=== PATIENT | female | born 1980 | race Two or more races ===

== ENCOUNTER → 2019-02-22 | Outpatient (CLI) | payer OTHER ==
[2019-02-22 16:02] LABS: BASO % 1 % (0-3); EOS % 1 % (0-3); HEMATOCRIT 39.8 % (36.0-47.0); HEMOGLOBIN 13.4 g/dL (12.0-15.5); LYMPH # 1.5 x10^3/uL (1.0-4.8); LYMPH % 34 % (24-48); MEAN CORPUSCULAR HEMOGLOBIN 29 pg (25-35); MEAN CORPUSCULAR HGB CONC 34 g/dL (31-37); MEAN CORPUSCULAR VOLUME 87 fL (79-100); MONO # 0.4 x10^3/uL (0.0-1.1); MONO % 9 % (0-9); NEUT # 2.5 x10^3uL (1.8-7.7); NEUT % 56 % (31-73); PLATELET COUNT 229 x10^3/uL (140-400); RED BLOOD COUNT 4.58 x10^6/uL (3.50-5.40); RED CELL DISTRIBUTION WIDTH 13.8 % (11.5-14.5); WHITE BLOOD COUNT 4.5 x10^3/uL (4.0-11.0)
[2019-02-22 16:13] LABS: ALBUMIN 4.2 g/dL (3.4-5.0); ALBUMIN/GLOBULIN RATIO 1.1 (1.0-1.7); CALCIUM 9.3 mg/dL (8.5-10.1); CREATININE 0.7 mg/dL (0.6-1.0); GFR 93.2; POTASSIUM 3.8 mmol/L (3.5-5.1); TOTAL BILIRUBIN 0.3 mg/dL (0.2-1.0); TOTAL PROTEIN 8.2 g/dL (6.4-8.2)
[2019-02-23 04:11] LABS: DHEA SO4 116.6 ug/dL (57.3-279.2); FSH 8.2 mIU/mL (.); HEMOGLOBIN A1C 5.1 % (4.8-5.6); LUTEINIZING HORMONE 3.9 mIU/mL (.)
[2019-02-23 14:02] LABS: THYROID STIM HORMONE (TSH) 2.435 uIU/mL (0.358-3.740)
[2019-02-25 09:10] LABS: TESTOSTERONE FREE 0.07 ng/dL (0.10-0.85); TESTOSTERONE TOTAL 6 ng/dL (8-48)
== END | disposition home or self-care (01) ==
LOC: LAB 15:05
PROVIDERS: ATTEND Obstetrics & Gynecology
DX: Z01.419 Encounter for gynecological examination (general) (routine) without abnormal findings (principal); N92.6 Irregular menstruation, unspecified; L68.0 Hirsutism
CPT/HCPCS: 36415; 80053; 80061; 82627; 83001; 83002; 83036; 83525; 84402; 84403; 84443; 84702; 85025

== ENCOUNTER → 2019-03-10 | Outpatient (CLI) | payer OTHER ==
--- NOTE | 2019-03-10 15:45 | RAD ---
DATE: 03/10/2019 EXAM: MAMMO ABIGAIL SCREENING BILATERAL HISTORY: Routine screening COMPARISON: Baseline study This study was interpreted with the benefit of Computerized Aided Detection (CAD). Breast Density: HETERO The breast parenchyma is heterogenously dense, which could reduce sensitivity of mammography. Breast parenchyma level C. FINDINGS: 2-D and 3-D tomosynthesis imaging was performed in CC and MLO projections. The breasts are quite heterogeneous. There is a 13 mm smooth nodule in the central aspect of the right breast best seen on the right cc tomosynthesis images #25. This is most likely a cyst, although a solid mass cannot be excluded. There is a possible similar nodule partially visualized for posteromedially in the right breast. No other discrete breast nodule is seen. No suspicious microcalcifications are evident. IMPRESSION: Right breast nodules. Sonographic evaluation is suggested. BI-RADS CATEGORY: 0 INCOMPLETE: NEEDS ADDITIONAL IMAGING EVALUATION AND/OR PRIOR MAMMOGRAMS FOR COMPARISON. RECOMMENDED FOLLOW-UP: ADD ADDITIONAL IMAGING PQRS compliance statement: Patient information was entered into a reminder system with a target due date for the next mammogram. Mammography is a sensitive method for finding small breast cancers, but it does not detect them all and is not a substitute for careful clinical examination. A negative mammogram does not negate a clinically suspicious finding and should not result in delay in biopsying a clinically suspicious abnormality. "Our facility is accredited by the [employer] Mammography Program."
--- NOTE | 2019-03-10 16:18 | RAD ---
Pelvic ultrasound, 03/10/2019: HISTORY: Heavy irregular periods Transabdominal and transvaginal scans were obtained. The uterus measures 8.7 x 6.0 x 4.0 cm. This central uterine echo complex measures 8 mm in greatest AP dimension. This is within normal limits for the premenopausal state. A tiny nabothian cyst is noted in the cervical region. The uterus is otherwise unremarkable. Both ovaries are of normal size. They contain small follicular cysts. No adnexal mass is seen. A trace amount of free fluid was noted in the cul-de-sac. This amount of fluid can be on a physiologic basis. IMPRESSION: No significant abnormality is detected. Electronically signed by: Bj Pryor MD (03/10/2019 4:15 PM) [facility]
== END | disposition home or self-care (01) ==
LOC: US 13:44
PROVIDERS: ATTEND Obstetrics & Gynecology
DX: Z12.31 Encounter for screening mammogram for malignant neoplasm of breast (principal); N63.10 Unspecified lump in the right breast, unspecified quadrant; N88.8 Other specified noninflammatory disorders of cervix uteri; Z80.3 Family history of malignant neoplasm of breast
CPT/HCPCS: 76830; 76856; 77063; 77067

== ENCOUNTER → 2019-03-25 | Outpatient (CLI) | payer OTHER ==
--- NOTE | 2019-03-25 14:36 | RAD ---
Right breast ultrasound, 03/25/2019: History: Abnormal mammogram. A targeted exam of the right breast was performed. In the central aspect of the breast a 1 cm smooth anechoic structure is identified. There is no internal vascularity. There is faint posterior acoustic enhancement on some of the images. This appears to represent a cyst and corresponds in location to the mammographic abnormality. At the 12:00 location approximately 4-5 cm from the nipple an additional small hypoechoic nodule is seen measuring 7 mm. Its margins are less clearly defined, however, there is posterior acoustic enhancement. There is no internal color flow. This is probably a cyst, however, that cannot be stated with certainty. No other right breast abnormality was evident. IMPRESSION: Probable right breast cysts as described above. Sonographic follow-up in 6 months is suggested. BI-RADS 3-probably benign findings
== END | disposition home or self-care (01) ==
LOC: US 12:57
PROVIDERS: ATTEND Obstetrics & Gynecology
DX: N63.12 Unspecified lump in the right breast, upper inner quadrant (principal)
CPT/HCPCS: 76641